=== PATIENT | female | born 1990 ===

== ENCOUNTER 2018-11-13 18:53 | Inpatient (IN) | payer OTHER ==
[2018-11-13 19:42] VITALS: BMI 31.7
[2018-11-13] MEDS ORDERED: Lactated Ringer's 1,000 ML IV ONE (19:43)
[2018-11-13] MEDS ORDERED: Lactated Ringer's 1,000 ML IV SCH (19:45)
[2018-11-13 20:43] LABS: BASO % 0.2 % (0.0-2.0); EOS # 0.1 K/uL (0.0-0.7); EOS % 1.4 % (0.0-4.0); HEMOGLOBIN 11.8 g/dL (12.0-16.0); LYMPH # 2.7 K/uL (1.0-4.3); LYMPH % 27.5 % (20.0-40.0); MEAN CELL VOLUME 86.4 fl (81.0-99.0); MEAN CORPUSCULAR HEMOGLOBIN 29.2 pg (27.0-31.0); MEAN CORPUSCULAR HGB CONC 33.8 g/dL (33.0-37.0); MEAN PLATELET VOLUME 10.8 fl (7.2-11.7); MONO # 0.8 K/uL (0.0-0.8); MONO % 7.8 % (0.0-10.0); NEUT # 6.1 K/uL (1.8-7.0); NEUT % 63.1 % (50.0-75.0); NRBC % 0.1 % (0.0-0.0); RBC 4.04 Mil/uL (3.80-5.20); WHITE BLOOD COUNT 9.7 K/uL (4.8-10.8)
[2018-11-13] MEDS ORDERED: Oxytocin 30 UNIT in NS 500 ml 30 UNITS/500 ML BAG IV ONE (21:45)
--- NOTE | 2018-11-13 21:57 | OBHP ---
Datetime: 11/13/2018 19:48 IP Adm Impression: Term, intrauterine ; No Active Labor IP Admit Plan: Admit to unit; Initiate labor induction protocol Admit Comment, IP Provider: 27yo reports here today for IOL for post date. The EDC based on 18week sonogram is 11/06/2018. Patient denies any current vaginal bleeding or leakage of fluid. OBHx: , some care at [facility]. PMHx: Nil of note. PSHx: None Allergies: None Social Hx: No Toxic habits O: Afebrile Heart: RRR Chest: CTA B/L Abd: Soft, NT, BS- present FHR: Category 1 TOCO: Irregular SVE: 50/-3 Assessment: IUP at 41weeks For IOL Reassuring Maternal Status Plan: Admit to LND Cervical ripening with cytotec Monitor closely the progress of labor Presentation-Admit: Vertex FHR - Baseline A Provider: 120 Membranes, Provider: Intact Gestation - Est Wks by US: 41.1 IP Chief Complaint: Scheduled induction of labor NICHD Variability Prov Fetus A: Moderate 6-25bpm NICHD Accel Fetus A IP Provider: 15X15 FHR Category Provider Fetus A: Category I Dilatation, Provider: 2 Effacement, Provider: 50 Station, Provider: -3
[2018-11-14] MEDS ORDERED: Nalbuphine HCL 10 mg/ml Ampule IVP PRN (01:37)
[2018-11-14] MEDS ORDERED: Promethazine 25 MG in Sodium Chloride 0.9% 50 ML IVPB ONE (02:00)
[2018-11-14] MEDS ORDERED: Fentanyl/Bupivacaine HCl 250 ML EPI ONE (08:22)
--- NOTE | 2018-11-14 08:29 | OBPN ---
Datetime: 11/14/2018 08:21 IP Progress Impression: Normal progression of labor IP Procedures: Sterile Vag Exam IP Progress Plan: Continue present management; Cervical Ripening Membranes, Provider: Intact Contraction Comments Provider: irregular FHR - Baseline A Provider: 130 Gestation - Est Wks by US: 41.2 Presentation-Admit: Vertex IP Progress Note Comment: IUP at 41w2d being induced for postdate. S/P Oral Cytotec X 2 Complaining of pelvic cramps and requesting pain meds. O afebrile Chest: CTA B/L Abd: Soft, NT BS- present FHR: 130s [place]: irregular Assessment: IUP at 41w2d Cervical ripening with cytotec Reassuring Maternal Status. Plan: Continue current management. May have epidural Vital Signs Provider: Reviewed NICHD Accel Fetus A IP Provider: 15X15 FHR Category Provider Fetus A: Category I NICHD Variability Prov Fetus A: Moderate 6-25bpm Dilatation, Provider: 3-4 Effacement, Provider: 50 Station, Provider: -2 NICHD Decel Fetus A IP Provider: None
[2018-11-14] MEDS ORDERED: Lidocaine 2% PF (10 ml) Amp ONE (09:08)
--- NOTE | 2018-11-14 15:58 | OBPN ---
Datetime: 11/14/2018 15:48 IP Progress Impression: Normal progression of labor; Reassuring heart rate IP Procedures: Artificial ROM; Sterile Vag Exam IP Progress Plan: Continue present management; Augmentation Contraction Comments Provider: Q 2-3 FHR - Baseline A Provider: 120 Gestation - Est Wks by US: 41.2 Presentation-Admit: Vertex IP Progress Note Comment: Assessment: IUP @ 41w2d Active labor on pitocin for augmentation of labor Reassuring [place] rate Tracing Plan: Continue Monitoring the progress of labor Vital Signs Provider: Reviewed NICHD Accel Fetus A IP Provider: 15X15 FHR Category Provider Fetus A: Category I NICHD Variability Prov Fetus A: Moderate 6-25bpm Dilatation, Provider: 5 Effacement, Provider: 90 Station, Provider: -2 NICHD Decel Fetus A IP Provider: None
[2018-11-14] MEDS ORDERED: OXYTOCIN/0.9 % NS 20 UNIT/1,000 ML BAG IV ONE (17:19)
[2018-11-14] MEDS ORDERED: Oxytocin 30 UNIT in NS 500 ml 30 UNITS/500 ML BAG IV ONE (17:29)
[2018-11-14] MEDS ORDERED: Benzocaine/Menthol SPRAY TOP PRN ×2 (18:08→20:30)
[2018-11-15 06:36] LABS: BASO # 0.1 K/uL (0.0-0.2); BASO % 0.4 % (0.0-2.0); EOS # 0.1 K/uL (0.0-0.7); EOS % 0.4 % (0.0-4.0); LYMPH # 2.3 K/uL (1.0-4.3); LYMPH % 17.2 % (20.0-40.0); MEAN CORPUSCULAR HEMOGLOBIN 29.1 pg (27.0-31.0); MEAN CORPUSCULAR HGB CONC 33.1 g/dL (33.0-37.0); MEAN PLATELET VOLUME 10.3 fl (7.2-11.7); MONO % 7.4 % (0.0-10.0); NEUT # 10.1 K/uL (1.8-7.0); NEUT % 74.6 % (50.0-75.0); RBC 3.25 Mil/uL (3.80-5.20); RED CELL DISTRIBUTION WIDTH 13.8 % (11.5-14.5); WHITE BLOOD COUNT 13.6 K/uL (4.8-10.8)
[2018-11-15 06:47] LABS: HEMOGLOBIN 9.5 g/dL (12.0-16.0)
[2018-11-15] MEDS: Multivitamin With Minerals Tab PO SCH (08:10)
[2018-11-15] MEDS ORDERED: Multivitamin With Minerals Tab PO SCH (09:00)
--- NOTE | 2018-11-15 10:15 | OBPPN ---
Datetime: 11/15/2018 07:43 PP Pain Prov: Within normal limits PP Nausea Prov: Denies PP Flatus Prov: Yes PP BM Prov: No PP Breasts Prov: Not Done PP Heart Prov: Normal PP Lungs Prov: Normal PP Extremities Prov: Normal PP Comments Phys Exam Prov: see progress note PP Impression Prov: Normal progression PP Plan Prov: Continue present management PP Progress Note Prov: Pt is a 27 YO , PPD 1 s/p on 11/14/18. [facility]. Patient has no complaints, denies pain at this time. Patient is ambulating w/o d ifficulties. Pt is breast and bottle feeding, she is tolerating regular diet. Lochia less than menses in volume. +Flatus, -BM. Denies fevers, chills, dizziness, chest pain, SOB, N/V/D, hematuria or dysu anna. VS: wnl Gen: NAD HEENT: NCAT Cardio: + S1S2, RRR Lungs: CTA B/L, no wheezes Abd: soft, appropriate tenderness to palpation, + BS, Uterus firm below level of umbilicus Ext: No edema, calves non tender Assessment: Pt is a 27 YO , s/p PPD 1, with normal progression. Plan: - and ambulation encouraged. - Ibuprofen 600 mg 1 tab Q 6h PRN mild pain -Acetaminophen 650 PO Q6h PRN pain -Continue vitamin Case discussed with attending A MD [place] PGY1 Addendum by Dr. Patel: I have evaluated the patient independently and I agree with the above Vital Signs Provider PP: Reviewed; Within Normal Limits
[2018-11-16] MEDS: Multivitamin With Minerals Tab PO SCH (08:39)
--- NOTE | 2018-11-16 09:14 | OBPPN ---
Datetime: 11/16/2018 05:17 PP Pain Prov: Within normal limits PP Nausea Prov: Denies PP Flatus Prov: Yes PP BM Prov: Yes PP Breasts Prov: Not Done PP Heart Prov: Normal PP Lungs Prov: Normal PP Abdomen/Uterus Prov: Normal PP Lochia Prov: Normal PP Vulva/Perineum Prov: Normal PP CVA Tenderness Prov: Normal PP Extremities Prov: Normal PP C/S Incision Prov: Not Applicable PP Progress Prov: Normal PP Comments Phys Exam Prov: See note PP Impression Prov: Normal progression PP Plan Prov: Discharge PP Progress Note Prov: Pt is a 27 YO , PPD 2 s/p on 11/14/18. Seen and examined at bedside. No complaints today, denies pain. Patient is ambulating w/o difficulties. Pt is breast and bottle fee ding and she is tolerating regular diet. Lochia equal to menses in volume. +Flatus, +BM. Denies fever s, chills, dizziness, chest pain, SOB, N/V/D, hematuria or dysuria. VS: wnl Gen: NAD HEENT: NCAT Cardio: + S1S2, RRR Lungs: CTA B/L, no wheezes Abd: soft, appropriate tenderness to palpation, + BS, Uterus firm below level of umbilicus Ext: No edema, calves non tender Assessment: Pt is a 27 YO , s/p PPD 2, with normal progression. Plan: - and ambulation encouraged. - Ibuprofen 600 mg 1 tab Q 6h PRN mild pain -Acetaminophen 650 PO Q6h PRN pain -Continue vitamin -Patient will be discharged today. Case discussed with attending Doris PGY1 The patient was seen with the resident I agree with the note Vital Signs Provider PP: Reviewed; Within Normal Limits
--- NOTE | 2018-11-16 09:17 | OBDCSUM ---
Datetime: 11/16/2018 05:40 Discharged to, Provider: Home Follow up at, Provider: PCP Disch Instr Activity: Normal activity; Bedrest Disch Instr Diet: Regular Discharge Instructions, Provider: Routine instructions given Discharge Diagnosis, Provider: Term Delivered Discharge Time: 11/16/2018 10:00 Follow up in weeks, Provider: 4-6 week Disch Activity Restrictions: No lifting; Minimize stair-climbing; No sexual activity; Nothing in vag aashish - [place], tampons, douche Discharge Comment, Provider: Diagnosis: 27 y/o s/p NVD of a baby girl on 11/14/18 with EGA: 41.0 weeks at time of delivery : Female, Wt. 3180 G, 9/9 Post- D/C Summary: No OB complications. No complications during post- period. Lochia i s less than menses. Pt able to pass gas, BM, ambulate and pass urine. Tolerate regular diet w/o N/V. Fundus firm below umbilicus level. Pt is hemodynamically stable. H/H : 9.5/28.6 Discharge Instructions given to patient: Encourage PNV 1 tab PO daily May take Ibuprofen 600mg OTC Q 6h prn for mild-mod pain if needed ED precautions: If excessive bleeding, pain that does not get relief, fever >100.4, palpitations, SOB, CP or other concerning symptom go to the ED PT was urged if feeling sad, mood swing, depression, neglect of baby, suicidal thoughts, homicidal thoughts go to ER or call 911 for help Pt should go to her Primary care doctor if have difficulty with breast feeding F/U in 4-6 week for PP visit with you PMD. [place] PGy1 Case discussed with attending The patient was seen with the resident I agree with the note
[2018-11-16 16:49] VITALS: BP 126/81; PULSE 98; RESP 20; TEMP 98.2; O2SAT 100
== END 2018-11-16 11:46 | disposition home or self-care (01) | DRG 373 ==
LOC: EDSTATUS 19:05 → H.L&D 19:43 → H.OB/GYN 11-14 20:08
PROVIDERS: ADMIT Obstetrics & Gynecology; ATTEND Obstetrics & Gynecology
PROC: 4A1HXCZ Monitoring of Products of Conception, Cardiac Rate, External Approach (ICD-10-PCS; 2018-11-13)
PROC: 10E0XZZ Delivery of Products of Conception, External Approach (ICD-10-PCS; principal; 2018-11-14)
DX: O48.0 Post-term pregnancy (principal); Z37.0 Single live birth; Z3A.41 41 weeks gestation of pregnancy; O70.1 Second degree perineal laceration during delivery